=== PATIENT | female | born 1995 | race African-American/Black ===

== ENCOUNTER 2019-01-02 23:52 | Emergency (ER) | payer OTHER ==
[2019-01-03] MEDS ORDERED: Acetaminophen 325 MG TAB ONE (00:08)
[2019-01-03 00:20] LABS: INR-International Normal Ratio 0.9; Prothrombin Time 12.6 SEC (12.0-14.7)
[2019-01-03 00:29] LABS: #Eosinphils 0.2 thou/uL (0.0-0.7); #Lymphocytes 1.9 thou/uL (1.20-3.40); #Monocytes 0.8 thou/uL (0.11-0.59); #Neutrophils 3.4 thou/uL (1.40-6.50); %Basophils 0.7 % (0.0-1.0); %Eosinophils 2.5 % (0.0-10.0); %Lymphocytes 30.3 % (21.0-51.0); %Monocytes 12.3 % (0.0-10.0); %Neutrophils 54.2 % (42.0-75.0); Hemoglobin 10.4 g/dL (12.0-16.0); Hypochromia SLIGHT = 6-15 cells (100X) (0-5/hpf); MDiff Complete? YES; Mean Corpuscular HGB CONC 31.8 g/dL (32.0-36.0); Mean Corpuscular Hemoglobin 24.1 pg (27.0-31.0); Mean Corpuscular Volume 75.6 fL (78.0-98.0); Mean Platelet Volume 5.5 fL (7.4-10.4); Microcytosis SLIGHT = 6-15 cells (100X) (0-5/hpf); Platelet Count 214 thou/uL (130-400); RBC Distribution Width 13.6 % (11.5-14.5); Red Blood Cell (RBC) Count 4.32 mill/uL (4.20-5.40); White Blood Cell (WBC) Count 6.3 thou/uL (4.8-10.8)
[2019-01-03 00:32] LABS: Bilirubin Negative (Negative); Blood, Urine Negative (Negative); Clarity Clear (Clear); Glucose, Urine (Dipstick) Negative (Negative); Leukocyte Negative (Negative); Nitrite Negative (Negative); Protein, Urine (Dipstick) Negative (Neg-Trace); Urobilinogen 0.2 mg/dL (Less than 2)
[2019-01-03 05:23] LABS: ALT (SGPT) 8 U/L (8-55); AST (SGOT) 15 U/L (5-34); Albumin 3.5 g/dL (3.5-5.0); Alkaline Phosphatase 68 U/L (40-150); Anion Gap 9 mmol/L (10-20); BUN (Urea Nitrogen) 8 mg/dL (7.0-18.7); Bilirubin, Total 0.2 mg/dL (0.2-1.2); Calc. Creatinine Clearance 0 mL/min (70-130); Calcium 8.9 mg/dL (7.8-10.44); Carbon Dioxide 22 mmol/L (22-29); Chloride 107 mmol/L (98-107); Estimated GFR-MDRD Greater than 90; Globulin 2.7 g/dL (2.4-3.5); Glucose 80 mg/dL (70-105); Potassium 3.7 mmol/L (3.5-5.1); Protein, Total 6.2 g/dL (6.0-8.3); Sodium 134 mmol/L (136-145); Uric Acid 5.1 mg/dL (2.6-6.0)
== END 2019-01-03 01:52 | disposition home or self-care (01) ==
LOC: SCSER 23:52
DX: O99.89 Other specified diseases and conditions complicating pregnancy, childbirth and the puerperium (principal); R51 Headache; O99.013 Anemia complicating pregnancy, third trimester; Z3A.37 37 weeks gestation of pregnancy
CPT/HCPCS: 80053; 81003; 83615; 84550; 85025; 85610; 86900; 86901

== ENCOUNTER 2019-01-18 18:04 | Day surgery (SDC) | payer OTHER ==
[2019-01-18] MEDS ORDERED: Acetaminophen 500 MG TAB ONE (18:32)
[2019-01-18 18:50] LABS: Hemoglobin 10.6 g/dL (12.0-16.0); Mean Corpuscular HGB CONC 30.7 g/dL (32.0-36.0); Mean Corpuscular Hemoglobin 23.2 pg (27.0-31.0); Mean Corpuscular Volume 75.6 fL (78.0-98.0); Mean Platelet Volume 6.3 fL (7.4-10.4); Platelet Count 240 thou/uL (130-400); RBC Distribution Width 13.6 % (11.5-14.5); Red Blood Cell (RBC) Count 4.57 mill/uL (4.20-5.40); White Blood Cell (WBC) Count 5.2 thou/uL (4.8-10.8)
[2019-01-18 18:52] LABS: ALT (SGPT) 12 U/L (8-55); Alkaline Phosphatase 84 U/L (40-110); Calc. Creatinine Clearance 0 mL/min (70-130)
[2019-01-18 19:04] LABS: AST (SGOT) 15 U/L (5-34); Albumin 3.4 g/dL (3.5-5.0); Anion Gap 17 mmol/L (10-20); BUN (Urea Nitrogen) 9 mg/dL (7.0-18.7); Bilirubin, Total 0.2 mg/dL (0.2-1.2); Calcium 8.7 mg/dL (7.8-10.44); Carbon Dioxide 17 mmol/L (22-29); Chloride 107 mmol/L (98-107); Estimated GFR-MDRD Greater than 90; Globulin 3.1 g/dL (2.4-3.5); Glucose 114 mg/dL (70-105); Magnesium 1.7 mg/dL (1.6-2.6); Potassium 3.8 mmol/L (3.5-5.1); Protein, Total 6.5 g/dL (6.0-8.3); Sodium 137 mmol/L (136-145)
[2019-01-18 19:05] LABS: #Basophils 0.1 thou/uL (0.0-0.2); #Eosinphils 0.1 thou/uL (0.0-0.7); #Lymphocytes 1.5 thou/uL (1.20-3.40); #Monocytes 0.5 thou/uL (0.11-0.59); %Basophils 1.4 % (0.0-1.0); %Eosinophils 2.6 % (0.0-10.0); %Lymphocytes 28.5 % (21.0-51.0); %Monocytes 9.6 % (0.0-10.0); %Neutrophils 57.9 % (42.0-75.0); Hypochromia SLIGHT = 6-15 cells (100X) (0-5/hpf); MDiff Complete? YES; Microcytosis SLIGHT = 6-15 cells (100X) (0-5/hpf); Platelet Morphology Comment Appears Adequate
[2019-01-18 19:10] LABS: Bilirubin Negative (Negative); Blood, Urine Trace (Negative); Clarity Clear (Clear); Glucose, Urine (Dipstick) Negative (Negative); Leukocyte Negative (Negative); Nitrite Negative (Negative); Protein, Urine (Dipstick) Negative (Neg-Trace); Urobilinogen 0.2 mg/dL (Less than 2)
[2019-01-18 19:13] LABS: Bacteria/HPF 2+ HPF (None Seen); RBC/HPF 0-3 HPF (0-3); Squamous Epithelial 21-50 HPF (0-3); WBC/HPF 0-3 HPF (0-3)
[2019-01-18 19:51] VITALS: BMI 34.5
[2019-01-18] MEDS ORDERED: FLU VACC QS2019-20(6MOS UP)/PF 60 MCG/0.5 ML SYRINGE IM ONE (20:00)
[2019-01-18] MEDS ORDERED: Metoclopramide HCl 10 MG/2 ML VIAL IVP PRN (20:23)
[2019-01-18] MEDS ORDERED: diphenhydrAMINE 50 MG/ML VIAL IVP SCH (20:30)
[2019-01-18] MEDS ORDERED: Lactated Ringer's 1,000 ML IV SCH (20:45)
[2019-01-18 21:20] LABS: Creatinine, Urine 212.38 mg/dL (47-110)
--- NOTE | 2019-01-19 08:57 | PRG ---
DATE OF SERVICE: 01/19/2019 PRIMARY OB: Joe Daniels MD CHIEF COMPLAINT: Headache. HISTORY OF PRESENT ILLNESS: The patient is a 23-year-old female, transferred from [facility] ER for concerns of preeclampsia. The patient was having an unrelenting headache and was transferred here to Labor and Delivery. The patient reports that she has had a headache for the last 3 days, that has been unrelieved with Tylenol. She says that the headache is associated with light and sound sensitivity, nausea. She denies a pulsatile headache. Denies any history of migraines, though she did say she had headaches similar to this a few weeks ago, for which she went to the emergency room also. The patient denies abdominal pain or shortness of breath. She denies fever, fall or diarrhea. She does report constipation that she attributes to her iron supplementation. Denies any new rashes, hip problems, knee problems or muscle weakness. Denies any change in vaginal discharge or bleeding or leakage of fluid. Denies urinary urgency or frequency. PAST MEDICAL HISTORY: Asthma, stable, off medications. PAST SURGICAL HISTORY: She has had wisdom teeth removed. ALLERGIES: NO KNOWN DRUG ALLERGIES. MEDICATIONS: 1. vitamins. 2. Iron. SOCIAL HISTORY: Denies drug, alcohol or tobacco use. REVIEW OF SYSTEMS: Per HPI. PHYSICAL EXAMINATION: VITAL SIGNS: Blood pressure over 2.5 hours has all remained in the normal range. Blood pressure on arrival is 131/69, heart rate of 78, respiratory rate of 18, and temperature 98.2. GENERAL: She appears to be in no acute distress. She is alert, oriented, cooperative, and pleasant to interact with. HEAD: Normocephalic and atraumatic. LUNGS: Clear to auscultation bilaterally. HEART: Regular rate and rhythm. ABDOMEN: Gravid and soft. Nontender. EXTREMITIES: Nontender and nonedematous. : Deferred. heart tracing; fetus is noted to be with a baseline in the 120s with moderate long-term variability, positive 15 x 15 accelerations, no decelerations. Tocometer is showing some irritability at times. LABORATORY DATA: Lab work showed urine protein negative on dip and a bmaokvy-fo-egdwgplafo ratio of less than 0.1. LFTs within normal limits and normal platelets and normal creatinine. ASSESSMENT AND PLAN: The patient is a 23-year-old female, G1, P0, with an intrauterine at 39 weeks and 0 days, who presents with unrelenting headache that was reminiscent of migraine. The patient has been put on treatment of Reglan and Benadryl alternating over a couple of hours. On re-evaluation, the patient's headache had come down to 0 and was ready for discharge home. Blood pressures remained under normal range. The patient is discharged home feeling much better with instructions to follow up with her primary OB as scheduled. Job ID: [id number]
== END 2019-01-18 22:45 | disposition home or self-care (01) ==
LOC: SCSER 18:04 → L&D/OP 18:04 → EDSTATUS 19:28 → L&D/OP 22:45
PROVIDERS: ATTEND Obstetrics & Gynecology
DX: O99.89 Other specified diseases and conditions complicating pregnancy, childbirth and the puerperium (principal); R51 Headache; O13.3 Gestational [pregnancy-induced] hypertension without significant proteinuria, third trimester; Z3A.39 39 weeks gestation of pregnancy
CPT/HCPCS: 80053; 81003; 81015; 82570; 83735; 84156; 85025; J1200; J2765

== ENCOUNTER 2019-01-27 19:01 | Inpatient (IN) | payer OTHER ==
[~2019-01-27 19:01] MED LIST: Lidocaine 2% MPF 10 ML AMP (For Epidural Use) ONE
[2019-01-27] MEDS ORDERED: hydrALAZINE 20 MG/ML VIAL SLOW IVP PRN (19:34)
[2019-01-27] MEDS ORDERED: HYDROcodone/Acetaminophen 5/325 mg Tablet PO PRN ×2 (19:34)
[2019-01-27] MEDS ORDERED: Ondansetron PF 4 MG/2 ML Vial IVP PRN (19:34)
[2019-01-27] MEDS ORDERED: Carboprost 250 MCG/ML AMP IM PRN (19:34)
[2019-01-27] MEDS ORDERED: Lidocaine 1% (PF) 30 ML VIAL SC PRN (19:34)
[2019-01-27] MEDS ORDERED: Acetaminophen 500 MG TAB PO PRN (19:34)
[2019-01-27] MEDS ORDERED: Ibuprofen 800 MG TAB PO PRN (19:34)
[2019-01-27] MEDS ORDERED: Methylergonovine 0.2 MG/ML VIAL IM PRN (19:34)
[2019-01-27] MEDS ORDERED: Misoprostol 200 MCG TAB PR PRN (19:34)
[2019-01-27] MEDS ORDERED: Diphenoxylate HCl/Atropine Tablet PO PRN ×2 (19:34)
[2019-01-27] MEDS ORDERED: Promethazine HCl 25 MG/ML VIAL IM PRN (19:34)
[2019-01-27] MEDS ORDERED: Zolpidem Tartrate 5 MG TAB PO PRN (19:34)
--- NOTE | 2019-01-27 19:39 | PDOC.LDHP ---
Labor and Delivery H&P HPI: 23 Y/O AT 40 WEEKS 2 DAYS FOR INDUCTION OF LABOR. Current gestational age (weeks): 40 Due date: 01/25/19 Grav: 1 Para: 0 Current complications: none Abnormal US findings: No Current medications: pre-reyes vitamins Previous surgical history: none Allergies/Adverse Reactions: Allergies Allergy/AdvReac Type Severity Reaction Status Date / Time No Known Allergies Allergy Verified 01/18/19 19:52 Social history: none - Physical Exam Vital signs reviewed and normal: yes General: NAD, resting Heart: RRR Lungs: CTAB Abdomen: gravid Extremeties: no edema FHT: category 1 - Assessment L&D Assessment: term patient in labor - Plan Plan: admit to L&D, cervical ripening
[2019-01-27] MEDS ORDERED: NS w/ Oxytocin 10 units 500 ML IV SCH (19:45)
[2019-01-27 20:20] VITALS: BMI 34.7
[2019-01-27 21:25] LABS: Hemoglobin 11.1 g/dL (12.0-16.0); Mean Corpuscular HGB CONC 33.1 g/dL (32.0-36.0); Mean Corpuscular Volume 72.5 fL (78.0-98.0); Mean Platelet Volume 8.7 fL (7.4-10.4); Platelet Count 243 thou/uL (130-400); RBC Distribution Width 13.4 % (11.5-14.5); Red Blood Cell (RBC) Count 4.61 mill/uL (4.20-5.40); White Blood Cell (WBC) Count 6.5 thou/uL (4.8-10.8)
[2019-01-27] MEDS: Misoprostol 100 MCG TAB VAG SCH (21:25)
[2019-01-27] MEDS: Lactated Ringer's 1,000 ML IV SCH ×2 (21:30→22:26)
[2019-01-27 22:01] LABS: Syphilis Antibody Nonreactive (Nonreactive); Syphilis Antibody Index 0.05 S/CO (<1.00 Non-Reactive)
[2019-01-27 22:25] LABS: HBSAg Index 0.17 S/CO (0-0.99); Hep B Surf Ag Non-Reactive S/CO (NonReactive)
[2019-01-28] MEDS: Butorphanol Tartrate 1 MG/ML VIAL SLOW IVP PRN ×3 (01:54→07:38)
[2019-01-28] MEDS: Misoprostol 100 MCG TAB VAG SCH ×6 (03:28→18:23)
[2019-01-28] MEDS: Lactated Ringer's 1,000 ML IV SCH ×2 (04:26→16:58)
[2019-01-28] MEDS ORDERED: FLU VACC QS2019-20(6MOS UP)/PF 60 MCG/0.5 ML SYRINGE IM ONE (09:00)
[2019-01-28] MEDS: NS w/ Oxytocin 10 units 500 ML IV SCH (12:10)
[2019-01-28] MEDS ORDERED: Fentanyl 4 mcg/Bup 0.1% Cadd 100 ML ONE ×2 (12:27→18:58)
[2019-01-28] MEDS: NS / Oxytocin 40 units/1000ml 1,000 ML IV PRN ×2 (21:12→23:10)
[2019-01-28] MEDS ORDERED: diphenhydrAMINE 25 MG CAP PO PRN (23:33)
[2019-01-28] MEDS ORDERED: NS / Oxytocin 40 units/1000ml 1,000 ML IV SCH (23:33)
[2019-01-28] MEDS ORDERED: Preparation H Ointment 28 GM TUBE PR PRN (23:33)
[2019-01-28] MEDS ORDERED: Bisacodyl 10 MG SUPP PR PRN (23:33)
[2019-01-28] MEDS ORDERED: Milk Of Magnesia 30 ML UDCUP PO PRN (23:33)
[2019-01-28] MEDS ORDERED: Ondansetron PF 4 MG/2 ML Vial IVP PRN (23:33)
[2019-01-28] MEDS ORDERED: Lanolin Ointment 7 GM TUBE TOP PRN (23:33)
[2019-01-28] MEDS ORDERED: Zolpidem Tartrate 5 MG TAB PO PRN (23:33)
[2019-01-28] MEDS ORDERED: hydrALAZINE 20 MG/ML VIAL SLOW IVP PRN (23:33)
[2019-01-28] MEDS ORDERED: Promethazine HCl 25 MG/ML VIAL IM PRN (23:33)
[2019-01-28] MEDS ORDERED: Methylergonovine 0.2 MG/ML VIAL IM PRN (23:33)
[2019-01-28] MEDS ORDERED: Misoprostol 200 MCG TAB VAG PRN (23:33)
[2019-01-29] MEDS: HYDROcodone/Acetaminophen 5/325 mg Tablet PO PRN ×5 (00:12→19:49)
[2019-01-29] MEDS ORDERED: Benzocaine-Menthol 82.5 ML CAN TOP PRN (01:53)
[2019-01-29] MEDS: Ibuprofen 800 MG TAB PO SCH ×3 (05:52→21:04)
[2019-01-29 06:38] LABS: Hemoglobin 11.2 g/dL (12.0-16.0); Mean Corpuscular HGB CONC 33.6 g/dL (32.0-36.0); Mean Corpuscular Hemoglobin 24.4 pg (27.0-31.0); Mean Corpuscular Volume 72.7 fL (78.0-98.0); Mean Platelet Volume 9.2 fL (7.4-10.4); Platelet Count 200 thou/uL (130-400); RBC Distribution Width 13.5 % (11.5-14.5); Red Blood Cell (RBC) Count 4.57 mill/uL (4.20-5.40); White Blood Cell (WBC) Count 9.6 thou/uL (4.8-10.8)
[2019-01-29] MEDS: Ferrous Sulfate 325 MG TAB PO SCH ×2 (07:42→16:50)
--- NOTE | 2019-01-29 07:44 | PDOC.PP ---
Post Progress Note Post Day #: 1 Subjective: Doing well, no complaints. PO intake tolerated: yes Ambulation: yes Vital Signs (12 hours) Temp Pulse Resp BP Pulse Ox 01/29/19 04:20 98.7 F 73 18 119/57 L 01/29/19 01:40 84 18 130/58 L 01/29/19 00:35 98.8 F 93 18 129/72 97 Weight Weight 215 lb - Physical Examination General: NAD Respiratory: non-labored breathing Abdominal: lochia (normal), no distention, appropriately TTP Fundus firm & at: below umbilicus Neurological: no gross focal deficits Psychiatric: A&Ox3, normal affect Result Diagrams: 01/29/19 05:58 Additional Labs: Post Labs Blood Type B POSITIVE 01/27/19 20:57 Hep Bs Antigen Non-Reactive S/CO (NonReactive) 01/27/19 20:57 - Assessment/Plan Continue routine PP care. Anticipate d/c tomorrow am.
[2019-01-29] MEDS: NS w/ Oxytocin 10 units 500 ML IV SCH (08:58)
[2019-01-29] MEDS: Lactated Ringer's 1,000 ML IV SCH (08:58)
[2019-01-29] MEDS: Misoprostol 100 MCG TAB VAG SCH (08:58)
[2019-01-29] MEDS ORDERED: Measles/Mumps/Rubella 10 MCG/0.5 ML VIAL SC ONE (09:00)
[2019-01-29] MEDS ORDERED: Adacel (T-DAP) 0.5 ML SYRINGE IM ONE (09:00)
[2019-01-29] MEDS ORDERED: Varicella virus, LIVE 0.5 ML VIAL SC ONE (09:00)
[2019-01-29] MEDS: Prenatal Vitamin 1 TAB PO SCH (09:20)
[2019-01-29] MEDS: Docusate Calcium (SURFAK) 240 MG CAP PO SCH ×2 (09:20→21:04)
[2019-01-29] MEDS ORDERED: FLU VACC QS2019-20(6MOS UP)/PF 60 MCG/0.5 ML SYRINGE IM ONE (15:00)
[2019-01-30] MEDS: HYDROcodone/Acetaminophen 5/325 mg Tablet PO PRN (01:22)
[2019-01-30] MEDS: Ibuprofen 800 MG TAB PO SCH (05:53)
--- NOTE | 2019-01-30 08:57 | PDOC.PP ---
Post Progress Note Post Day #: 2 Subjective: Pain controlled with medications. Tolerating ambulation and diet. going well. PO intake tolerated: yes Flatus: yes Ambulation: yes Weight Weight 97.522 kg - Physical Examination General: NAD Cardiovascular: no m/r/g, RRR Respiratory: clear to auscultation bilaterally, non-labored breathing Abdominal: + bowel sounds, appropriately TTP Fundus firm & at: below umbilicus Neurological: no gross focal deficits Psychiatric: A&Ox3, normal affect Result Diagrams: 01/29/19 05:58 Additional Labs: Post Labs Blood Type B POSITIVE 01/27/19 20:57 Hep Bs Antigen Non-Reactive S/CO (NonReactive) 01/27/19 20:57 - Assessment/Plan PPD #2 from complicated by third degree perineal laceration Meeting PP milestones. Will discharge home today. Encouraged sitz bath for comfort. Will send with Tramadol and scheduled Motrin for pain relief Stool softeners sent to pharmacy, discussed importance of bowel regimen with 3rd degree lac.
[2019-01-30] MEDS: Ferrous Sulfate 325 MG TAB PO SCH (09:00)
[2019-01-30] MEDS: Docusate Calcium (SURFAK) 240 MG CAP PO SCH (09:04)
[2019-01-30] MEDS: Prenatal Vitamin 1 TAB PO SCH (09:04)
--- NOTE | 2019-01-30 09:25 | PDOC.EVN ---
Event Note - Event Note Event Note: OBGYN Note patient seen st Bedside with Dr gasca See handwritten note in chart OK for DC home Third degree lac noted: no evidence complication at this point
[2019-01-30 09:52] VITALS: BP 114/56; TEMP 98.6
== END 2019-01-30 13:00 | disposition home or self-care (01) | DRG 807 ==
LOC: L&D 19:01 → 3SW 01-29 00:40
PROVIDERS: ADMIT Obstetrics & Gynecology; ATTEND Obstetrics & Gynecology
PROC: 10907ZC Drainage of Amniotic Fluid, Therapeutic from Products of Conception, Via Natural or Artificial Opening (ICD-10-PCS; principal; 2019-01-27)
PROC: 10E0XZZ Delivery of Products of Conception, External Approach (ICD-10-PCS; 2019-01-27)
PROC: 0KQM0ZZ Repair Perineum Muscle, Open Approach (ICD-10-PCS; 2019-01-27)
PROC: 3E033VJ Introduction of Other Hormone into Peripheral Vein, Percutaneous Approach (ICD-10-PCS; 2019-01-27)
DX: O70.20 Third degree perineal laceration during delivery, unspecified (principal); Z37.0 Single live birth; Z3A.40 40 weeks gestation of pregnancy
CPT/HCPCS: 36415; 85027; 86780; 86850; 86900; 86901; 87340; 90471; 90686; 90715; G0008; J0595; J2001; J2590

== ENCOUNTER 2020-09-20 03:19 | Emergency (ER) | payer OTHER ==
[2020-09-20] MEDS ORDERED: Ibuprofen 100 MG/5 ML UDCUP ONE (03:54)
[2020-09-20] MEDS ORDERED: Acetaminophen 325 MG/10.15 ML UDCUP ONE (05:12)
== END 2020-09-20 05:25 | disposition home or self-care (01) ==
LOC: ERS 03:19
DX: H65.93 Unspecified nonsuppurative otitis media, bilateral (principal); R09.81 Nasal congestion; R05 Cough; J45.909 Unspecified asthma, uncomplicated; R09.89 Other specified symptoms and signs involving the circulatory and respiratory systems
CPT/HCPCS: 99283